=== PATIENT | female | born 1945 | race Caucasian/White ===

== ENCOUNTER → 2016-10-15 | Outpatient (CLI) | payer OTHER | LOC: FIMAGING 09:44 | PROVIDERS: ATTEND Psychiatry & Neurology Neurology | DX: R29.810 Facial weakness (principal); F17.200 Nicotine dependence, unspecified, uncomplicated; I10 Essential (primary) hypertension; E78.5 Hyperlipidemia, unspecified; R29.90 Unspecified symptoms and signs involving the nervous system ==

== ENCOUNTER 2018-05-13 10:19 | Emergency (ER) | payer OTHER ==
--- NOTE | 2018-05-13 12:13 | EDPHY ---
General Time Seen by Provider: 05/13/18 11:49 Narrative: CHIEF COMPLAINT: Constipation, rectal pain HISTORY OF PRESENT ILLNESS: Patient presents private vehicle with complaints of rectal pain, constipation and some blood her stool. She notes that since Sunday she has been constipated. She had a small liquid movement Sunday morning after taking milk of magnesia Sunday she has no pain at rest but does have pain when she tries to have a bowel. The pain is in the rectum. She has tried to manually disimpact herself but was unable to feel anything. No upper abdominal pain. No fever. No nausea vomiting. She does report chronic kidney disease. She does not take any narcotic medications. No iron medications. She has no other associated complaints or modifying factors REVIEW OF SYSTEMS: 10 systems were reviewed and negative with the exception of the elements mentioned in the history of present illness. PCP: Dr. Cleo alejo SPECIALISTS: [facility] PAST MEDICAL HISTORY: Hypertension, herniated disc, stage IV renal dysfunction PAST SURGICAL HISTORY: Hysterectomy SOCIAL HISTORY: Never smoker. Lives independently. FAMILY HISTORY: Noncontributory EXAMINATION: Vitals: Triage VS reviewed General Appearance: Alert, no distress Head: normocephalic, atraumatic Eyes: Pupils equal and round, no conjunctival pallor or injection ENT, Mouth: Mucous membranes moist Neck: Normal inspection, supple, non-tender Respiratory: Lungs are clear to auscultation Cardiovascular: Regular rate and rhythm Gastrointestinal: Abdomen is soft and nondistended. No tympany rigidity. No guarding. Bowel sounds present all 4 quadrants. No hemorrhoids present on rectal exam Back: non-tender, no bony abnormalities Neurological: A&O, nonfocal, normal gait Skin: Warm and dry, no rash Extremities: Nontender, no pedal edema Psychiatric: Mood and affect normal DIFFERENTIAL DIAGNOSES: Including but not limited to constipation, obstipation, fecal impaction, bowel obstruction, colonic obstruction MDM: 11:50 a.m. Constipation and rectal pain of 3 days duration. Patient clinically does appear to be constipated. She has no medications or history that would explain why she is having constipation, thus I have ordered CT abdomen and pelvis. She has tried manual disimpaction herself with no stool able to be removed vital signs are within normal limits. No acute distress. She does have renal failure that is stable, thus I have ordered without contrast. 1:15 p.m. Notified by radiologist. CT scan reveals constipation but no other acute abnormality. I do feel it is reasonable to proceed with soap suds enema for the patient. She agrees. 1:40 p.m. Patient re-evaluated. She has elected to go home to enema. We will provide her with soap suds enemas today: Administered. Additional would like her to take half a bottle of magnesium citrate. She may repeat this after 4 hr if no bowel movement. We discussed daily MiraLax versus senna. We discussed ED precautions for any abdominal pain, difficulty with bowel movement. She is comfortable this plan and would like to go home to do so. SUPERVISION: This patient was independently evaluated without direct involvement of or examination by the attending physician. CONSULTATION: None - Diagnostics Imaging Results: Imaging Impressions Abdomen/Pelvis CT 05/13/18 12:13 Impression: 1. Constipation particularly in the rectosigmoid distribution. 2. No regional inflammation, mass, or evidence of bowel obstruction. Findings discussed with Emergency Department physician, Manuel Ramos PA-C on May 13, 2018 at 1304 hours. Attention: This CT examination is specifically designed to evaluate patients who are clinically suspected of having acute obstructive uropathy. This examination does not use radiographic contrast, and as such, provides only a limited evaluation of the abdomen, pelvis and retroperitoneum. If there is further clinical suspicion for pathological conditions other than obstructive uropathy, a complete CT evaluation of the abdomen and pelvis utilizing intravenous, oral, and rectal contrast should be considered. - History Smoking Status: Current every day smoker - Objective Vital Signs: Initial Vital Signs Temperature (C) 97.7 F 05/13/18 10:29 Heart Rate 98 05/13/18 10:29 Respiratory Rate 17 05/13/18 10:29 Blood Pressure 158/68 H 05/13/18 10:29 O2 Sat (%) 96 05/13/18 10:29 O2 Delivery Mode Room Air Allergies/Adverse Reactions: clindamycin Allergy (Verified 05/13/18 10:26) HIHVES erythromycin base Allergy (Verified 05/13/18 10:26) Penicillins Allergy (Verified 05/13/18 10:26) Sulfa (Sulfonamide Antibiotics) [Sulfa(Sulfonamide Antibiotics)] Allergy ( Verified 05/13/18 10:26) tramadol Allergy (Verified 05/13/18 10:27) Home Medications: Medication Instructions Recorded Ibuprofen [Motrin 200 mg (OTC)] 400 mg PO DAILY PRN 05/11/12 Multivitamins [Multivitamin (OTC)] 1 each PO DAILY 05/11/12 Naproxen Sodium [Aleve 220 mg 220 mg PO BID PRN 05/11/12 (OTC)] Areds 05/13/18 Fish Oil 1,000 mg Softgel 05/13/18 Levothyroxine 05/13/18 Lisinopril 05/13/18 Red Yeast Rice 05/13/18 amLODIPine BES/[facility] 05/13/18 Departure - Departure Disposition: Home, Routine, Self-Care Clinical Impression: Fecal impaction Constipation Qualifiers: Constipation type: unspecified constipation type Qualified Code(s): K59.00 - Constipation, unspecified Condition: Good Instructions: Constipation (DC), High Fiber Diet (ED), Fleet Enema (ED) Additional Instructions: 1. Enema as discussed in the emergency department. 2. [id number]-[id number] magnesium citrate. Drink 1/2 a bottle. Wait 2-4 hours and repeat if needed 3. [id number] MiraLax 1 packet every day or every other day 4. Gbrl-ocy-dwromft senna stool softener as needed to decrease constipation Referrals: Cleo Moscoso MD [Primary Care Provider] - As per Instructions
[2018-05-13 13:59] VITALS: BP 128/66
== END 2018-05-13 13:20 | disposition home or self-care (01) ==
DX: K56.41 Fecal impaction (principal); I12.0 Hypertensive chronic kidney disease with stage 5 chronic kidney disease or end stage renal disease; N18.5 Chronic kidney disease, stage 5